=== PATIENT | female | born 1990 | race Caucasian/White ===

== ENCOUNTER 2016-11-12 18:50 | Emergency (ER) | payer OTHER ==
[~2016-11-12] VITALS: Ht 157.5 cm; Wt 52.8 kg
[~2016-11-12 18:50] MED LIST: AMOXICILLIN875 MG PO; Colace PO; DEPO-PROVER150 MG/ML IM; Feosol PO; LORTAB 5-325 M1 EACH PO; MOTRIN800 MG PO; Motrin PO; NOHOMEMEDS; Percocet 5/325,Endoc PO; TYLENOL WITH C1 EACH PO
[2016-11-12 20:17] LABS: HEMATOCRIT 36.8 % (36.0-46.0); MCH 31.6 PG (29.0-34.0); MCHC 33.7 G/DL (30.0-36.0); MCV 93.9 FL (83-99); MEAN PLAT.VOLUME 10.5 uM^3 (9.5-12.4); PLATELET COUNT 228 K/uL (156-360); RBC DIS.WIDTH-CV 12.7 % (11.8-14.6); RBC DIS.WIDTH-SD 43.6 % (39-53); RED BLOOD COUNT 3.92 M/uL (3.80-5.20); WHITE BLOOD COUNT 8.2 K/uL (4.1-10.2)
[2016-11-12 20:30] LABS: CHLORIDE 107 mEq/L (99-109); POTASSIUM 3.7 mEq/L (3.7-5.4); SODIUM 139 mEq/L (136-147)
[2016-11-12 20:32] LABS: GLUCOSE 107 mg/dL (70-99)
[2016-11-12 20:34] LABS: ANION GAP 10 MEQ/L (2-14)
[2016-11-12 20:36] LABS: GFR ESTIMATE (CALCULATED) > 59 mL/min/
[2016-11-12 20:37] LABS: UREA NITROGEN (BUN) 11 mg/dL (9-23)
[2016-11-12 20:44] LABS: QUANTITATIVE HCG < 4.0 MIU/ML
[2016-11-12 21:21] LABS: ADD MIUA? YES; BILIRUBIN NEGATIVE; BLOOD NEGATIVE; COLOR YELLOW ((YELLOW)); GLUCOSE (STRIP) NEGATIVE; KETONES NEGATIVE; LEUKOCYTES TRACE; NITRITE NEGATIVE; PROTEIN (STRIP) NEGATIVE; SPECIFIC GRAVITY 1.012 (1.000-1.030)
[2016-11-12 21:31] LABS: BACTERIA RARE /HPF; EPITHELIAL CELLS 1+ /HPF; MUCUS TRACE /LPF; RED BLOOD CELLS NONE SEEN /HPF (0-5); UCUL ADDED? NO; WHITE BLOOD CELLS NONE SEEN /HPF (0-5)
[2016-11-12] MEDS ORDERED: CIPROFLOXACIN H10 ML BOTH EYES (21:41)
[2016-11-12] MEDS ORDERED: FIORICET 50-301 EACH PO (21:41)
[2016-11-12 21:53] VITALS: BP 119/56
== END 2016-11-12 21:53 | disposition home or self-care (01) ==
LOC: EME 18:50
PROVIDERS: Physician Assistant
DX: S00.83XA Contusion of other part of head, initial encounter (principal); S06.0X0A Concussion without loss of consciousness, initial encounter; S13.9XXA Sprain of joints and ligaments of unspecified parts of neck, initial encounter; S05.10XA Contusion of eyeball and orbital tissues, unspecified eye, initial encounter; Y04.8XXA Assault by other bodily force, initial encounter; Y07.9 Unspecified perpetrator of maltreatment and neglect; F17.200 Nicotine dependence, unspecified, uncomplicated
CPT/HCPCS: 70450; 70486; 72125; 73090; 80048; 81003; 84702; 85027; 99281; 99284

== ENCOUNTER 2017-07-01 11:42 | Emergency (ER) | payer SELFPAY ==
[~2017-07-01] VITALS: Ht 157.5 cm; Wt 55.4 kg
[~2017-07-01 11:42] MED LIST changes: +CIPROFLOXACIN H10 ML BOTH EYES; +FIORICET 50-301 EACH PO
[2017-07-01 11:50] VITALS: BP 126/70
[2017-07-01] MEDS ORDERED: AMOXICILLIN500 MG PO (14:19)
== END 2017-07-01 14:23 | disposition home or self-care (01) ==
LOC: EME 11:42
DX: J02.0 Streptococcal pharyngitis (principal); R05 Cough; R51 Headache; F17.200 Nicotine dependence, unspecified, uncomplicated
CPT/HCPCS: 87651 90; 99281; 99284